=== PATIENT | male | born 2000 | race Caucasian/White ===

== ENCOUNTER 2023-03-29 08:17 | Emergency (ER) | payer BC, SELFPAY ==
[2023-03-29 08:18] VITALS: BP 126/72; PULSE 112; RESP 16; TEMP 37.2; O2SAT 98; BMI 38.2
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
== END 2023-03-29 08:52 | disposition home or self-care (01) ==
PROVIDERS: Emergency Provider Emergency Medicine; Visit Provider Emergency Medicine
DX: S10.93XA Contusion of unspecified part of neck, initial encounter (principal); M54.9 Dorsalgia, unspecified; V43.52XA Car driver injured in collision with other type car in traffic accident, initial encounter
CPT/HCPCS: 99282